=== PATIENT | female | born 1990 ===

== ENCOUNTER 2020-10-12 12:36 | Inpatient (IN) ==
[2020-10-12] MEDS ORDERED: MEPERIDINE 50 MG/1 ML VIAL IV PRN (13:14)
[2020-10-12] MEDS ORDERED: BUTORPHANOL 2 MG/ML VIAL IV PRN (13:14)
[2020-10-12] MEDS ORDERED: BUTORPHANOL 1 MG/ML VIAL IV PRN (13:14)
[2020-10-12] MEDS ORDERED: ONDANSETRON 4 MG/2 ML VIAL IV PRN (13:14)
[2020-10-12 13:34] LABS: Basophils % 0.1 % (0.0-0.8); Eosinophils # 0.1 10*3/uL (0.0-0.87); Eosinophils % 0.8 % (0.00-10.9); Hematocrit 31.2 VOL% (35.7-47.0); Hemoglobin 10.5 GM/DL (12.0-16.0); Immature Granulocytes % 0.7 %; Immature Granulocytes Absolute 0.06 #; Lymphocytes # 2.1 10*3/uL (1.4-4.0); Lymphocytes % 23.5 % (21.3-54.2); Mean Corpuscular HGB Conc 33.7 GM/DL (32-36); Mean Corpuscular Volume 82.1 FL (87-102); Mean Platelet Volume 9.9 FL (9.6-12.0); Monocytes % 4.7 % (1.7-12.7); Neutrophils % 70.2 % (38.7-73.9); Platelet Count 321 T/CUMM (130-400); White Blood Count 8.9 T/CUMM (4-12)
[2020-10-12 13:52] LABS: Alanine Aminotransferase 11 U/L (13-56); Albumin 2.5 G/DL (3.4-5.0); Alkaline Phosphatase 268 U/L (45-117); Aspartate Amino Transferase 22 U/L (0-37); Bilirubin,Total < 0.39 MG/DL (0.2-1.0); Blood Urea Nitrogen 10 MG/DL (7-18); Calcium 8.1 MG/DL (8.5-10.1); Estimated Glom Filtration Rate 145 ML/MIN; Glucose 115 MG/DL (74-106); Osmolality,Calculated 274.7 MOS/KG (273-304); Uric Acid 5.5 MG/DL (2.6-6.0)
[2020-10-12] MEDS: OXYTOCIN/LR 20 UNIT/1,000 ML BAG IV PRN (13:59)
[2020-10-12] MEDS: LACTATED RINGERS 1,000 ML IV SCH ×3 (13:59→21:52)
[2020-10-12] MEDS ORDERED: LACTATED RINGERS 1,000 ML IV ONE (16:19)
[2020-10-12] MEDS ORDERED: PROMETHAZINE 25 MG/1 ML VIAL IM ONE (16:19)
[2020-10-12] MEDS ORDERED: FAMOTIDINE 20 MG/2 ML VIAL IV ONE (16:19)
[2020-10-12] MEDS ORDERED: CITRIC ACID/SODIUM CITRATE 30 ML UDCUP PO ONE (16:19)
[2020-10-12] MEDS ORDERED: hydrOXYzine HCL 25 MG/1 ML VIAL IM PRN (16:19)
[2020-10-12] MEDS ORDERED: ePHEDrine 50 MG/ML VIAL IV PRN (16:19)
[2020-10-12] MEDS ORDERED: ONDANSETRON 4 MG/2 ML VIAL IV ONE (16:19)
[2020-10-12] MEDS ORDERED: diphenhydrAMINE 50 MG/1 ML VIAL IV PRN ×2 (16:19)
[2020-10-12] MEDS ORDERED: NALOXONE 0.4 MG/ML VIAL IV PRN (16:19)
[2020-10-12] MEDS ORDERED: fentaNYL 2 MCG/ROPIV 0.2% EPID 100 ML EPIDURAL SCH (16:30)
[2020-10-12 18:57] LABS: Bilirubin,Urine Negative (Negative); Blood, Urine Negative (Negative); Glucose,Urine (UA) Negative (Negative); Ketones,Urine 5 mg/dL (Negative); Mucus,Urine Occasional /LPF (Occasional); Nitrite,Urine Negative (Negative); Protein,Urine Negative; RBC,Urine <1 /HPF (0-4); Squamous Epithelial Cell,Urine Occasional /HPF (0-10); Urine Appearance CLEAR (Clear); Urine Color Yellow (Yellow); Urine Specific Gravity 1.026 (1.001-1.035); WBC,Urine <1 /HPF (0-6)
[2020-10-12 20:30] LABS: Barbiturates Screen,Urine Negative (Negative); Benzodiazepines Screen,Urine Negative (Negative); Cannabinoid Screen,Urine Positive (Negative); Opiate Screen,Urine Negative (Negative); Phencyclidine Screen,Urine Negative (Negative)
[2020-10-13 00:26] LABS: Cord Arterial Blood HCO3 17.1 MMOL/L
[2020-10-13 00:29] LABS: Cord Venous Blood HCO3 18.6 MMOL/L; Cord Venous Blood PCO2 42.1 MMHG; Cord Venous Blood PO2 29.8
[2020-10-13] MEDS: OXYTOCIN/LR 20 UNIT/1,000 ML BAG IV PRN (01:35)
[2020-10-13] MEDS ORDERED: oxyCODONE/ACETAMINOPHEN 5-325 MG TABLET PO PRN (02:56)
[2020-10-13] MEDS ORDERED: BISACODYL 10 MG SUPP RECTAL PRN (02:56)
[2020-10-13] MEDS ORDERED: WITCH HAZEL PADS 100/JAR TOP PRN (02:56)
[2020-10-13] MEDS ORDERED: RHO(D) IMMUNE GLOBULIN 300 MCG SYRINGE IM ONE (02:56)
[2020-10-13] MEDS ORDERED: ACETAMINOPHEN 325 MG TABLET PO PRN (02:56)
[2020-10-13] MEDS ORDERED: BENZOCAINE 20%/MENTHOL 0.5% SPRAY 56 GM CAN TOP PRN (02:56)
[2020-10-13] MEDS ORDERED: HYDROCORTISONE 2.5% RECTAL CREAM 30 GM TUBE TOP PRN (02:56)
[2020-10-13] MEDS ORDERED: OXYTOCIN/LR 20 UNIT/1,000 ML BAG IV ONE (02:56)
[2020-10-13] MEDS ORDERED: LANOLIN 50% CREAM 0.3 OZ TUBE TOP PRN (02:56)
[2020-10-13] MEDS ORDERED: DIPH/TET/ACEL PERT BOOSTER VACCINE 0.5 ML VIAL IM ONE (02:56)
[2020-10-13] MEDS ORDERED: MEASLES/MUMPS/RUBELLA VACCINE 0.5 ML VIAL SUBCUT ONE (02:56)
[2020-10-13] MEDS: IBUPROFEN 800 MG TABLET PO PRN (03:00)
[2020-10-13 06:36] LABS: Basophils % 0.2 % (0.0-0.8); Eosinophils % 0.2 % (0.00-10.9); Immature Granulocytes % 0.4 %; Immature Granulocytes Absolute 0.05 #; Lymphocytes % 16.5 % (21.3-54.2); Mean Corpuscular HGB Conc 33.3 GM/DL (32-36); Mean Corpuscular Volume 82.4 FL (87-102); Mean Platelet Volume 9.7 FL (9.6-12.0); Monocytes % 6.2 % (1.7-12.7); Neutrophils % 76.5 % (38.7-73.9); Platelet Count 276 T/CUMM (130-400); Red Blood Count 3.64 MC/CUMM (3.8-5.5); Red Cell Distribution Width 13.8 % (9.3-17.3); White Blood Count 12.2 T/CUMM (4-12)
[2020-10-13] MEDS: oxyCODONE/ACETAMINOPHEN 5-325 MG TABLET PO PRN ×2 (08:19→18:45)
[2020-10-13] MEDS: DOCUSATE SODIUM 100 MG CAPSULE PO SCH ×2 (08:19→21:00)
[2020-10-13] MEDS ORDERED: INFLUENZA VIRUS VACCINE 0.5 ML SYRINGE IM ONE (09:00)
[2020-10-14] MEDS: IBUPROFEN 800 MG TABLET PO PRN (03:25)
[2020-10-14 09:09] VITALS: BP 127/79
[2020-10-14] MEDS ORDERED: INFLUENZA VIRUS VACCINE 0.5 ML SYRINGE IM ONE (10:24)
[2020-10-14] MEDS: DOCUSATE SODIUM 100 MG CAPSULE PO SCH (11:20)
== END 2020-10-14 12:10 | disposition home or self-care (01) | DRG 560 ==
LOC: N.LD 12:36 → N.OB 10-13 14:28
PROVIDERS: ADMIT Obstetrics & Gynecology; ATTEND Obstetrics & Gynecology